=== PATIENT | female | born 1950 | race Caucasian/White ===

== ENCOUNTER 2017-06-19 11:15 | Outpatient (CLI) | payer MEDICARE, OTHER ==
[2017-06-19 18:24] LABS: BUN - BLOOD UREA NITROGEN 15 mg/dL (6-20); CALCIUM 8.9 mg/dL (8.5-10.3); CARBON DIOXIDE - CO2 29 mmol/L (21-32); CHLORIDE 98 mmol/L (101-111); CHOL/HDL RATIO 2.3 (<4.4); CHOLESTEROL 187 mg/dL; CREATININE 0.7 mg/dL (0.4-1.0); GFR - MDRD 83 (>89); GLUCOSE 128 mg/dL (70-100); HDL CHOLESTEROL 81 mg/dL; LDL/HDL RATIO 1.2 (<4.4); SODIUM 132 mmol/L (135-145); TRIGLYCERIDES 47 mg/dL; VLDL CHOLESTEROL 9 mg/dL
== END 2017-06-19 11:16 | disposition home or self-care (01) ==
LOC: LAB.F 11:15
PROVIDERS: ATTEND Internal Medicine
DX: Z00.00 Encounter for general adult medical examination without abnormal findings (principal); I10 Essential (primary) hypertension; E87.1 Hypo-osmolality and hyponatremia; R73.01 Impaired fasting glucose; M85.80 Other specified disorders of bone density and structure, unspecified site
CPT/HCPCS: 36415; 80048; 80061; 86140

== ENCOUNTER 2017-06-25 10:43 | Outpatient (CLI) | payer MEDICARE, OTHER ==
--- NOTE | 2017-06-26 13:09 | Mammography Report ---
DIGITAL SCREENING MAMMOGRAM: 06/25/2017 CLINICAL INDICATION: A 67-year-old for screening. COMPARISON: 07/2015, 08/2013, 11/2010, 11/2010, 08/2009. TECHNIQUE: Routine CC and MLO projections were obtained of the breasts. FINDINGS: Scattered fibroglandular tissue is present within the breasts. There are no dominant roosevelt s, suspicious microcalcifications, or secondary signs of malignancy. In comparison to the previous st udies, there are no significant changes. ASSESSMENT: NO MAMMOGRAPHIC EVIDENCE OF MALIGNANCY. NO SIGNIFICANT INTERVAL CHANGES. RECOMMENDATION: Screening mammography is recommended annually. BI-RADS category 1 - negative. STANDARD QUALIFYING STATEMENTS 1. This examination was reviewed with the aid of Computed-Aided Detection (CAD). 2. A negative or benign imaging report should not delay biopsy if clinically suspicious findings are present. Consider surgical consultation if warranted. More than 5% of cancers are not identified by i maging. 3. Dense breasts may obscure an underlying neoplasm. JOB #: [id number] EXT JOB #:[id number]
== END 2017-06-25 10:44 | disposition home or self-care (01) ==
LOC: DI 10:43
PROVIDERS: ATTEND Internal Medicine
DX: Z12.31 Encounter for screening mammogram for malignant neoplasm of breast (principal)
CPT/HCPCS: 77067

== ENCOUNTER 2022-08-02 08:41 | Outpatient (CLI) | payer MEDICARE, OTHER ==
--- NOTE | 2022-08-03 10:27 | Mammography Report ---
BILATERAL DIGITAL SCREENING MAMMOGRAM 3D/2D: 08/02/2022 CLINICAL: Routine screening. Comparison is made to exams dated: 06/25/2017 mammogram, 07/22/2015 mammogram, and 08/08/2013 mammogra m - [facility]. Both breasts are heterogeneously dense, which may obscure small masses (category c / 51-75% glandular tissue). No significant masses, calcifications, or other findings are seen in either breast. There has been no significant interval change. IMPRESSION: NEGATIVE There is no mammographic evidence of malignancy. A 1 year screening mammogram is recommended. Based on the Tyrer Cuzick model (a risk assessment model) the patients lifetime risk is 6.9% and her 10 year risk is 5.7%. According to the ACR, ACS, and NCCN guidelines, an annual breast MRI exam vickie g with mammogram is recommended if the patients lifetime risk is 20% or greater. This exam was interpreted at Station ID: [id number]. NOTE: For mammograms, a report in lay terms will be sent to the patient. Approximately 15% of breast malignancies will not be visualized mammographically. In the management of a palpable breast mass, a negative mammogram must not discourage biopsy of a clinically suspicious lesion. Electronically Signed By: Allegra [email or web address]/[email or web address]:08/02/2022 14:46:44 ACR BI-RADS Category 1: Negative 3341F PARENCHYMAL PATTERN: (D) - The breast(s) demonstrate(s) heterogeneously dense fibroglandular arya orr. BI-RADS CATEGORY: (1) - 1 RECOMMENDATION: (ANNUAL) - Recommend routine annual screening mammography. [id number] 1 year screening LATERALITY: (B)
== END 2022-08-02 08:42 | disposition home or self-care (01) ==
LOC: DI 08:41
PROVIDERS: ATTEND Internal Medicine
DX: Z12.31 Encounter for screening mammogram for malignant neoplasm of breast (principal)

== ENCOUNTER 2022-08-23 11:50 | Outpatient (CLI) | payer MEDICARE, OTHER ==
[2022-08-23 12:47] LABS: BUN - BLOOD UREA NITROGEN 18 mg/dL (6-20); CALCIUM 9.2 mg/dL (8.5-10.3); CARBON DIOXIDE - CO2 27 mmol/L (21-32); CHLORIDE 95 mmol/L (101-111); CHOLESTEROL 209 mg/dL; CREATININE 0.7 mg/dL (0.4-1.0); GFR - MDRD 82 (>89); GLUCOSE 131 mg/dL (70-100); HDL CHOLESTEROL 106 mg/dL; LDL CHOLESTEROL,CALCULATED 92 mg/dL; LDL/HDL RATIO 0.9 (<4.4); POTASSIUM 3.9 mmol/L (3.5-5.0); SODIUM 132 mmol/L (135-145); TRIGLYCERIDES 53 mg/dL; VLDL CHOLESTEROL 11 mg/dL
[2022-08-23 12:52] LABS: ESTIMATED AVERAGE GLUCOSE 123 mg/dL (70-100); HEMOGLOBIN A1c% 5.9 % (4.27-6.07)
[2022-08-23 12:54] LABS: FECAL OCCULT BLOOD (FIT) NEGATIVE (NEGATIVE)
--- NOTE | 2022-08-23 13:09 | DEXA Report ---
PROCEDURE: Dexa Spine and/or Hip INDICATIONS: POST MENOPAUSAL TECHNIQUE: Dual energy x-ray absorptiometry (DXA) was performed on a [employer] System. Regions measur ed are the AP Spine, femoral neck, and if needed forearm. COMPARISON: DEXA 08/21/2014 is unable to be compared directly secondary to differences in acquisition software. FINDINGS: Lumbar Spine: Bone Mineral Density 1.209 g/cm/cm,T score 0.2, normal Left Hip: Bone Mineral Density 0.788 g/cm/cm,T score 1.7, mild to moderate osteopenia Left Femoral Neck: Bone Mineral Density 0.665 g/cm/cm, T score -2.7, mild osteoporosis (T score greater or equal to -1.0: NORMAL) (T score from -1.1 to -2.4: OSTEOPENIA) (T score less than or equal to -2.5 to: OSTEOPOROSIS) Impression: Osteoporosis is present within the left femoral neck. Patients with diagnosis of osteoporosis or osteopenia should have regular bone mineral density assess ment. For those eligible for Medicare, routine testing is allowed once every 2 years. Testing frequ ency can be increased for patients who have rapidly progressing disease or for those who are receivin g medical therapy to restore bone mass. Reviewed by: Harleen Palomo MD on 08/23/2022 1:08 PM PST Approved by: Harleen Palomo MD on 08/23/2022 1:08 PM PST Station ID: [id number]
[2022-08-24 04:08] LABS: HCV AB <0.1 s/co ratio (0.0-0.9)
== END 2022-08-23 11:51 | disposition home or self-care (01) ==
LOC: DI 11:50
PROVIDERS: ATTEND Internal Medicine
DX: M81.0 Age-related osteoporosis without current pathological fracture (principal); Z12.11 Encounter for screening for malignant neoplasm of colon; I10 Essential (primary) hypertension; Z13.1 Encounter for screening for diabetes mellitus; Z11.59 Encounter for screening for other viral diseases; Z13.220 Encounter for screening for lipoid disorders; Z78.0 Asymptomatic menopausal state
CPT/HCPCS: 36415; 80048; 80061; 82274; 83036; 83721; 86803